=== PATIENT | female | born 1990 | race African-American/Black ===

== ENCOUNTER 2023-03-03 08:24 | Emergency (ER) | payer SELFPAY ==
[2023-03-03 08:28] VITALS: BP 134/91; TEMP 98.3
[2023-03-03 09:54] VITALS: PULSE 80
== END 2023-03-03 09:54 | disposition home or self-care (01) ==
LOC: COL.ER 08:24
DX: S09.90XA Unspecified injury of head, initial encounter (principal); Z87.891 Personal history of nicotine dependence; W20.8XXA Other cause of strike by thrown, projected or falling object, initial encounter
CPT/HCPCS: J1885; J2765